=== PATIENT | female | born 1985 | race Caucasian/White ===

== ENCOUNTER 2021-02-06 15:53 | Emergency (ER) | payer OTHER ==
[~2021-02-06] VITALS: Ht 165.1 cm; Wt 54.0 kg
[2021-02-06 15:58] VITALS: BP 125/75
== END 2021-02-06 19:02 | disposition home or self-care (01) ==
LOC: ER 15:54
DX: M25.532 Pain in left wrist (principal)
CPT/HCPCS: 73110; 73130; 99284